=== PATIENT | male | born 1995 | race Caucasian/White ===

== ENCOUNTER 2020-09-04 12:42 | Emergency (ER) | payer SELFPAY ==
[~2020-09-04] VITALS: Ht 175.3 cm; Wt 72.1 kg
[2020-09-04 12:55] VITALS: BP 149/78
--- NOTE | 2020-09-04 13:01 | NUR ---
24 YEAR OLD MALE COMPLAINS OF CYST ON LEFT ARM X "LESS THAN A WEEK". PAIN 5/10, LOCAL, NO DRAINAGE PRESENT, SKIN RED AND WARM. PATIENT ABLE TO PERFORM APPROPRIATE ROM ON AFFECTED ARM. AO4, BREATHING EVEN AND UNLABORED, SKIN WARM AND DRY. BED IN LOWEST POSITION, LOCKED, X1 SIDERAIL UP. PMH - ADHD, HEP C NKA
[2020-09-04] MEDS ORDERED: LIDOCAINE MPF 1% 10 MG/ML VIAL INJ ONE (13:10)
[2020-09-04 13:47] VITALS: BP 149/78
--- NOTE | 2020-09-04 13:47 | NUR ---
Patient given written and verbal discharge instructions and verbalizes understanding. Given copies of tests performed during visit. Patient is awake, alert and oriented. Ambulatory with steady gait. Refuses offer of halfway placement. Given list of available shelters in surrounding areas. Patient clothes appropriate for weather. Declined food.
--- NOTE | 2020-09-04 13:49 | NUR ---
Patient discharged with v/s stable. Written and verbal after care instructions about abscess given and explained. Patient alert, oriented and verbalized understanding of instructions. Ambulatory with steady gait. All questions addressed prior to discharge. ID band removed. Patient advised to follow up with PMD. Rx of naprosyn and bactrim given. Patient educated on indication of medication including possible reaction and side effects. Opportunity to ask questions provided and answered.
== END 2020-09-04 13:49 | disposition home or self-care (01) ==
LOC: MED 12:42
DX: L02.414 Cutaneous abscess of left upper limb (principal); F15.90 Other stimulant use, unspecified, uncomplicated
CPT/HCPCS: 10060; 99283; J2001